=== PATIENT | male | born 1985 | race Caucasian/White ===

== ENCOUNTER 2017-11-05 23:25 | Emergency (ER) | payer SELFPAY ==
[~2017-11-05] VITALS: Ht 185.4 cm; Wt 104.5 kg
[2017-11-05 23:35] VITALS: Ht 185.4 cm; Wt 104.5 kg
[2017-11-06] MEDS ORDERED: TORADOL10 MG PO (00:42)
[2017-11-06 01:35] VITALS: BP 154/81
== END 2017-11-06 01:37 | disposition home or self-care (01) ==
LOC: D.ER 23:25
DX: M54.5 Low back pain (principal); F17.200 Nicotine dependence, unspecified, uncomplicated